=== PATIENT | male | born 1975 | race Caucasian/White ===

== ENCOUNTER 2021-11-05 19:23 | Emergency (ER) | payer OTHER ==
[2021-11-06] MEDS ORDERED: VIBRAMYCIN100 MG PO (00:43)
[2021-11-06] MEDS ORDERED: PERCOCET 5-3251 EACH PO (00:43)
== END 2021-11-06 01:21 | disposition home or self-care (01) ==
LOC: FER 19:23
DX: S61.211A Laceration without foreign body of left index finger without damage to nail, initial encounter (principal); I10 Essential (primary) hypertension; Z23 Encounter for immunization; Z79.899 Other long term (current) drug therapy; W23.0XXA Caught, crushed, jammed, or pinched between moving objects, initial encounter; Y92.89 Other specified places as the place of occurrence of the external cause; Y99.0 Civilian activity done for income or pay
CPT/HCPCS: 73130; 90471; 90715